=== PATIENT | female | born 1980 | race Caucasian/White ===

== ENCOUNTER 2022-03-31 09:35 | Emergency (ER) | payer OTHER ==
[~2022-03-31 09:35] MED LIST: AMBIEN10 MG PO; TIVICAY50 MG PO; TRUVADA 200 MG1 EACH PO
[2022-03-31 10:18] LABS: HEMOGLOBIN 14.2 gm/dl (12.3-15.3); RED BLOOD COUNT 4.62 M/UL (4.00-5.10); WHITE BLOOD COUNT 6.3 K/UL (4.5-11.0)
[2022-03-31 10:46] LABS: BUN/CREATININE RATIO 10 (0-10)
== END 2022-03-31 14:00 | disposition home or self-care (01) ==
LOC: ER1 09:35
PROVIDERS: Physician Assistant
DX: R07.9 Chest pain, unspecified (principal); E78.5 Hyperlipidemia, unspecified; I10 Essential (primary) hypertension; Z88.2 Allergy status to sulfonamides; Z88.5 Allergy status to narcotic agent
CPT/HCPCS: 71045; 80053; 82550; 82553; 84484; 85025; 93005; 99285